=== PATIENT | male | born 1980 | race Two or more races ===

== ENCOUNTER 2024-10-07 13:41 | Emergency (ER) | payer OTHER ==
[~2024-10-07] VITALS: Ht 185.4 cm; Wt 75.7 kg
[2024-10-07 13:45] VITALS: TEMP 98.6
[2024-10-07] MEDS ORDERED: ONDANSETRON HCL/PF 4 MG/2 ML VIAL ONE (14:25)
[2024-10-07] MEDS ORDERED: MORPHINE SULFATE INJ 4 MG/ML DISP.SYRIN ONE ×2 (14:26→16:24)
[2024-10-07] MEDS: MORPHINE SULFATE INJ 2 MG/ML DISP.SYRIN IV ONE ×2 (14:30→16:27)
[2024-10-07] MEDS: ONDANSETRON HCL/PF 4 MG/2 ML VIAL IVP ONE (14:30)
[2024-10-07] MEDS: IV NS 0.9% 1,000 ML BAG IV ONE (14:30)
[2024-10-07 14:36] LABS: PLATELET COUNT (AUTO) 266 K/uL (150-450); RED BLOOD CELL COUNT(AUTO) 5.12 MIL/uL (4.5-6.0); RED CELL DISTRIBUTION WIDTH 13.9 % (11.5-15.0); WHITE BLOOD COUNT (AUTO) 12.7 K/uL (4.3-11.0)
[2024-10-07] MEDS ORDERED: IOHEXOL-300 100 ML VIAL IV ONE (14:42)
[2024-10-07] MEDS ORDERED: IV NS 0.9% 250 ML IV ONE (14:43)
[2024-10-07 14:45] LABS: CALCIUM, SERUM 9.1 mg/dL (8.5-10.1); CREATININE 1.1 mg/dL (0.6-1.3); SODIUM SERUM 142.0 mmol/L (136-145); UREA NITROGEN, BLOOD 15.0 mg/dL (7-18)
[2024-10-07 14:56] LABS: INR 1.02 (0.91-1.10)
[2024-10-07] MEDS ORDERED: TDAP [DIPH/PERTUSSIS/TET] 0.5 ML VIAL IM ONE (15:33)
[2024-10-07] MEDS: CEFAZOLIN 1 GM in IV D5W 50 ML IV ONE (15:35)
[2024-10-07] MEDS: TDAP [DIPH/PERTUSSIS/TET] 0.5 ML VIAL IM ONE (15:35)
[2024-10-07 18:00] VITALS: BP 122/79; O2SAT 99
== END 2024-10-07 19:56 | disposition short-term general hospital (02) ==
LOC: ER 14:01
DX: S42.022A Displaced fracture of shaft of left clavicle, initial encounter for closed fracture (principal); S42.192A Fracture of other part of scapula, left shoulder, initial encounter for closed fracture; S22.42XA Multiple fractures of ribs, left side, initial encounter for closed fracture; S27.329A Contusion of lung, unspecified, initial encounter; S80.812A Abrasion, left lower leg, initial encounter; F17.200 Nicotine dependence, unspecified, uncomplicated; M54.2 Cervicalgia; R10.9 Unspecified abdominal pain; V27.49XA Other motorcycle driver injured in collision with fixed or stationary object in traffic accident, initial encounter; Y93.89 Activity, other specified; Y92.488 Other paved roadways as the place of occurrence of the external cause; Y99.8 Other external cause status
CPT/HCPCS: 99285; 72125; 96365; 96375; 96361; 90471; 90715; 73070; 73060; 73030; 71260; 70450; 74177; 85025; 80048; 36415; 85730; 86850; 96376; L0172; J0690; J2270 ×2; J2405; J7060; J7030; J7050; A6403; Q9967